=== PATIENT | female | born 1940 | race Caucasian/White ===

== ENCOUNTER 2017-05-31 18:43 | Emergency (ER) | payer OTHER ==
[2017-05-31 18:47] VITALS: BMI 24.0
--- NOTE | 2017-05-31 19:19 | DR.GENAD ---
HPI - HPI Comment HPI Comment: SIMILAR PAIN PREVIOUSLY BUT EPISODE TODAY MOST SEVERE. NO FEVER OR DYSURIA. TAKES MED FOR REFLUX. HAD BM TODAY. - Complaint/Symptoms Chief Complaint Doctors Comments: EPISODE OF SEVERE ABDOMINAL PAIN WITH NAUSEA AND VOMINTING AT HOME LASTING 20MINS. Chief Complaint:: "stomach hurting for 20min with N/V - Nurses notes reviewed Nurses Notes Review: Yes - Source History Provided: Patient - Mode of Arrival Mode of Arrival: Wheelchair - Timing Onset of Chief Complaint: 05/31/17 Came on: Suddenly - Duration Duration: Since Onset Duration: Hours - Severity Severity: Moderate PMH - PMH Past Medical History: Yes Past Medical History: Coronary Artery Disease Past Surgical History: Yes Surgical History: Angioplasty/Stents, Other - Family History History of Family Medical Conditions: No - Social History Does patient currently use any type of tobacco product: No Have you used tobacco products in the last 12 months: No Type of Tobacco Use: None Does any household member use tobacco: No Alcohol Use: None Do you use any recreational Drugs:: No Lives With: Family Lives Where: Home - infectious screening In the last 2 months have you had wt loss of >10#?: NO Have you had fever, night sweats or hemotysis?: No Have you traveled outside the country in the last 6 months?: No Isolation: Standard ROS - Review of Systems Constitutional: No Symptoms Reported Eyes: No Symptoms Reported ENTM: No Symptoms Reported Respiratoy: No Symptoms Reported Cardiovascular: No Symptoms Reported Gastrointestinal/Abdominal: Abdominal Pain, Nausea, Vomiting. negative: Diarrhea Genitourinary: No Symptoms Reported. negative: Dysuria, Frequency, Hematuria Neurological: No Symptoms Reported Musculoskeletal: No Symptoms Reported Integumentary: No Symptoms Reported Hematologic/Lymphatic: No Symptoms Reported Endocrine: No Symptoms Reported All Other Systems: Reviewed and Negative PE - Vital Signs Vitals: Temperature 97.8 F Pulse Rate [Left] 77 Pulse Rate 78 Respiratory Rate 18 Blood Pressure [Right Arm] 148/83 Blood Pressure 152/90 O2 Sat by Pulse Oximetry 100 - General Limitations: No Limitations General Appearance: Alert - Head Head Exam: Normal Inspection - Eyes Eye exam: Normal Appearance, PERRL, EOMI. negative: Scleral Icterus, Conjunctival Injection - ENT ENT Exam: Normal External Ear Exam External Ear Exam: Normal External Inspection TM/Canal Exam: Bilateral Normal Nose Exam: Normal Nose Exam Mouth Exam: Normal Inspection Throat Exam: Normal Inspection - Neck Neck Exam: Normal Inspection - Chest Chest Inspection: Symmetric Chest Wall Rise - Respiratory Respiratory Exam: Normal Lung Sounds Bilat Respiratory Exam: Bilateral Clear to Auscultation - Cardiovascular Cardiovascular Exam: Regular Rate, Normal Rhythm, Normal Heart Sounds - Abdominal Exam Abdominal Exam: Normal Bowel Sounds, Soft. negative: Tenderness - Extremities Extremities Exam: Normal Inspection - Back Back Exam: Normal Inspection - Neurologic Neurological Exam: Alert, Oriented X3 - Psychiatric Psychiatric Exam: Normal Affect, Normal Mood - Skin Skin Exam: Normal Color [facility] - Additional Information Additional Information Obtained From: Family - Differential Diagnosis Differential Diagnosis: ABDOMINAL PAIN, N/V Course - Treatment Treatment: SEE ORDERS. - Education/Counseling Education/Counseling: Patient, Family, Education Educated On: Diagnosis, Needs for Follow Up ROR - Labs Reviewed Laboratory Results Reviewed?: Yes Result Diagrams: 05/31/17 19:50 05/31/17 19:50 Laboratory: WBC 7.7 X10^3/uL (3.6-10.0) 05/31/17 19:50 RBC 3.80 X10^6/uL (3.5-5.4) 05/31/17 19:50 Hgb 12.0 g/dL (12.0-16.0) 05/31/17 19:50 Hct 35.1 % (36.0-47.0) L 05/31/17 19:50 MCV 92.4 fL (80.0-100.0) 05/31/17 19:50 MCH 31.7 pg (27.0-34.0) 05/31/17 19:50 MCHC 34.3 g/dL (33.0-35.0) 05/31/17 19:50 RDW 13.6 % (11.6-16.5) 05/31/17 19:50 Plt Count 199 X10^3/uL (150.0-450.0) 05/31/17 19:50 MPV 8.5 fL (7.4-11.0) 05/31/17 19:50 Neut % 58.4 % (42.0-75.0) 05/31/17 19:50 Lymph % 27.9 % (21.0-51.0) 05/31/17 19:50 [place] % 6.6 % (0.0-13.0) 05/31/17 19:50 Eos % 6.3 % (0.9-2.9) H 05/31/17 19:50 Baso % 0.8 % (0.2-1.0) 05/31/17 19:50 Neut # 4.5 x10^3/uL (2.2-4.8) 05/31/17 19:50 Lymph # 2.2 X10^3/uL (1.3-2.9) 05/31/17 19:50 [place] # 0.5 x10^3/uL (0.3-0.8) 05/31/17 19:50 Eos # 0.5 x10^3/uL (0.0-0.2) H 05/31/17 19:50 Baso # 0.1 X10^3/uL (0.0-0.1) 05/31/17 19:50 Absolute Nucleated RBC 0.0 /100WBC 05/31/17 19:50 Sodium 145 mmol/L (136-145) 05/31/17 19:50 Corrected Sodium TNP 05/31/17 19:50 Potassium 3.2 mmol/L (3.5-5.1) L 05/31/17 19:50 Chloride 109 mmol/L (98-107) H 05/31/17 19:50 Carbon Dioxide 23.9 mmol/L (21-32) 05/31/17 19:50 BUN 20 mg/dL (7-18) H 05/31/17 19:50 Creatinine 1.55 mg/dL (0.55-1.02) H 05/31/17 19:50 Est GFR (MDRD) Af Amer 42 (>60) L 05/31/17 19:50 Est GFR (MDRD) Non-Af 35 (>60) L 05/31/17 19:50 Glucose 101 mg/dL (65-99) H 05/31/17 19:50 Calcium 9.5 mg/dL (8.5-10.1) 05/31/17 19:50 Corrected Calcium TNP 05/31/17 19:50 Total Bilirubin 0.30 mg/dL (0.2-1.0) 05/31/17 19:50 AST 22 Units/L (15-37) 05/31/17 19:50 ALT 18 Units/L (12-78) 05/31/17 19:50 Alkaline Phosphatase 62 Units/L (46-116) 05/31/17 19:50 Total Protein 7.6 g/dL (6.4-8.2) 05/31/17 19:50 Albumin 3.9 g/dL (3.4-5.0) 05/31/17 19:50 Globulin 3.7 g/dL (2.5-4.5) 05/31/17 19:50 Albumin/Globulin Ratio 1.1 Ratio (1.1-2.1) 05/31/17 19:50 Amylase 87 Units/L (25-115) 05/31/17 19:50 Lipase 470 Units/L (73-393) H 05/31/17 19:50 Specimen Type Clean catch urine 05/31/17 19:33 Urine Color Yellow (YELLOW) 05/31/17 19:33 Urine Appearance Slightly hazy (CLEAR) 05/31/17 19:33 Urine pH 5.0 (5.0 - 8.0) 05/31/17 19:33 Ur Specific [place] 1.025 (1.000-1.030) 05/31/17 19:33 Urine Protein 2+ (NEGATIVE) 05/31/17 19:33 Urine Glucose (UA) Negative (NEGATIVE) 05/31/17 19:33 Urine Ketones Negative (NEGATIVE) 05/31/17 19:33 Urine Occult Blood 2+ (NEGATIVE) 05/31/17 19:33 Urine Nitrite Negative (NEGATIVE) 05/31/17 19:33 Urine Bilirubin Negative (NEGATIVE) 05/31/17 19:33 Urine Urobilinogen Normal (NORMAL) 05/31/17 19:33 Ur Leukocyte Esterase 1+ (NEGATIVE) 05/31/17 19:33 Urine RBC 3-5 /HPF (NEGATIVE) 05/31/17 19:33 Urine WBC 2-3 /HPF (NEGATIVE) 05/31/17 19:33 Ur Squamous Epith Cells Few /HPF (NEGATIVE) 05/31/17 19:33 Calcium Oxalate Crystal Few /HPF (NEGATIVE) 05/31/17 19:33 Urine Bacteria 1+ /HPF (NEGATIVE) 05/31/17 19:33 Ur Culture Indicated? No/not indicated 05/31/17 19:33 - XRAY XRAY Interpreted by: Radiologist XRAY Findings: REPORT DISCUSS WITH PATIENT AND FAMILY. - Diagnosis Discharge Problem: Abdominal pain, Hypokalemia, Elevated lipase - Discharge Plan Disposition: 01 HOME, SELF-CARE Condition: Stable Prescriptions: Ondansetron HCl [Zofran Tab 4 mg] 4 mg PO Q8H PRN #12 tab PRN Reason: Nausea/Vomiting - Follow ups/Referrals Follow ups/Referrals: [facility],None [Primary Care Provider] - 06/01/17 - Instructions Instructions: Hypokalemia, Abdominal Pain, Adult, Ucna-pv-Aooh Additional Instructions: RETURN TO ED IF WORSE.
[2017-05-31 19:49] LABS: BILIRUBIN,URINE NEGATIVE (NEGATIVE); BLOOD/HEMOGLOBIN,URINE 2+ (NEGATIVE); GLUCOSE, URINE NEGATIVE (NEGATIVE); KETONES,URINE NEGATIVE (NEGATIVE); LEUKOCYTE ESTERASE ,URINE 1+ (NEGATIVE); NITRITES,URINE NEGATIVE (NEGATIVE); PROTEIN,URINE 2+ (NEGATIVE); UROBILINOGEN,URINE NORMAL (NORMAL)
[2017-05-31 20:05] LABS: BASOPHILS # (AUTO) 0.1 X10^3/uL (0.0-0.1); BASOPHILS % (AUTO) 0.8 % (0.2-1.0); EOSINOPHILS # (AUTO) 0.5 x10^3/uL (0.0-0.2); EOSINOPHILS % (AUTO) 6.3 % (0.9-2.9); HEMATOCRIT 35.1 % (36.0-47.0); LYMPHOCYTES # (AUTO) 2.2 X10^3/uL (1.3-2.9); LYMPHOCYTES % (AUTO) 27.9 % (21.0-51.0); MEAN CORPUSCULAR HEMOGLOBIN 31.7 pg (27.0-34.0); MEAN CORPUSCULAR HGB CONC 34.3 g/dL (33.0-35.0); MEAN CORPUSCULAR VOLUME 92.4 fL (80.0-100.0); MEAN PLATELET VOLUME 8.5 fL (7.4-11.0); MONOCYTES # (AUTO) 0.5 x10^3/uL (0.3-0.8); MONOCYTES % (AUTO) 6.6 % (0.0-13.0); NEUTROPHILS # (AUTO) 4.5 x10^3/uL (2.2-4.8); NEUTROPHILS % (AUTO) 58.4 % (42.0-75.0); PLATELET COUNT 199 X10^3/uL (150.0-450.0); RED CELL DISTRIBUTION WIDTH 13.6 % (11.6-16.5); WHITE BLOOD COUNT 7.7 X10^3/uL (3.6-10.0)
[2017-05-31 20:10] LABS: APPEARANCE,URINE SLIGHTLY HAZY (CLEAR); BACTERIA,URINE 1+ /HPF (NEGATIVE); CALCIUM OXALATE CRYSTALS,UR FEW /HPF (NEGATIVE); COLOR,URINE YELLOW (YELLOW); SQUAMOUS EPITHELIAL CELL,UR FEW /HPF (NEGATIVE)
[2017-05-31 20:15] LABS: ALANINE AMINOTRANSFERASE 18 Units/L (12-78); ALBUMIN 3.9 g/dL (3.4-5.0); ALKALINE PHOSPHATASE 62 Units/L (46-116); AMYLASE 87 Units/L (25-115); ASPARTATE AMINO TRANSFERASE 22 Units/L (15-37); BLOOD UREA NITROGEN 20 mg/dL (7-18); CALCIUM 9.5 mg/dL (8.5-10.1); CARBON DIOXIDE 23.9 mmol/L (21-32); CHLORIDE 109 mmol/L (98-107); CREATININE 1.55 mg/dL (0.55-1.02); LIPASE 470 Units/L (73-393); SODIUM 145 mmol/L (136-145); TOTAL PROTEIN 7.6 g/dL (6.4-8.2); eGFR BLACK RACES 42 (>60); eGFR NON BLACK RACES 35 (>60)
[2017-05-31] MEDS ORDERED: POTASSIUM CHLORIDE LIQ 20 MEQ UDC PO ONE (21:10)
[2017-05-31] MEDS ORDERED: POTASSIUM CHLORIDE LIQ 20 MEQ UDC ONE (21:15)
[2017-05-31 21:24] VITALS: BP 148/83
--- NOTE | 2017-06-01 01:19 | RAD ---
Abdomen-single view Indication: Abdominal pain with nausea and vomiting. Findings: There is no free air or pneumatosis. No dilated loop of small bowel seen. Moderate stool se en in the colon. Right abdominal pelvic clips noted. Impression: No high-grade obstruction or free air pneumatosis. Constipation may present. Left lower p ole renal stone possible. Reported By:
== END 2017-05-31 21:20 | disposition home or self-care (01) ==
LOC: ER 18:54
DX: R10.84 Generalized abdominal pain (principal); E87.6 Hypokalemia; R74.8 Abnormal levels of other serum enzymes
CPT/HCPCS: 36415; 74000; 80053; 81001; 82150; 83690; 85025; 99283

== ENCOUNTER → 2017-06-09 | Outpatient (CLI) | payer OTHER ==
[2017-05-31 21:24] VITALS: BP 148/83
[2017-06-09 08:46] LABS: CREATININE 1.5 mg/dL (0.55-1.02)
--- NOTE | 2017-06-10 09:26 | CT ---
HISTORY: Generalized weight loss and abdominal pain. Study: CT chest without contrast Comparison: None available. Technique: Multiple axial images of the chest were obtained from the thoracic inlet to the upper abdo men without the administration of IV contrast. Dose reduction techniques including Automated Exposure Control (AEC) and adjustment of mA and kV were utilized. Findings: Limited study secondary to lack of IV contrast. The mediastinum does not demonstrate significant pathological lymphadenopathy. There is no paracardi al effusion observed. The thoracic aorta is normal in its contour without evidence for aneurysmal di latation. Multiple calcified mediastinal and hilar lymph nodes consistent with old granulomatous dise ase. Moderate to severe vascular calcifications of the coronary arteries. There appears to be a cardi ac stent within the left anterior descending coronary artery. Mild biapical scarring. 2.7 cm left lower lobe calcified pulmonary nodule. 2 mm subpleural right uppe r lobe pulmonary nodule (series 3, image 23). No other pulmonary nodules, masses, pleural effusion, f ocal consolidation, or pneumothorax. Multiple punctate calcifications within the spleen consistent wi th old granulomatous disease. Small hiatal hernia. Multiple nonobstructing left renal nephroliths, th e largest measuring 4 mm within the left inferior renal pole. Remaining upper abdominal structures ap pear normal. Multiple degenerative changes of the lumbar spine. Anterior compression fracture of the L2 vertebral body of unknown chronicity. Remaining osseous structures appear intact. IMPRESSION: 1. No acute thoracic pathology. 2. 2 mm subpleural right lower lobe pulmonary nodule. 3. L2 compression fracture of unknown chronicity. Recommend clinical correlation for point tenderness and consider MRI for further characterization. Reported By:
--- NOTE | 2017-06-10 09:48 | CT ---
HISTORY: Pain Study: CT abdomen and pelvis without contrast Comparison: None Technique: Multiple axial images of the abdomen and pelvis were obtained from the lung bases to the pubic symphy sis after oral contrast only. Automated does control was utilized. Findings: There are calcified granulomas along the left lower lobe measuring up to 2.4 cm . The liver and splee n are normal size with tiny calcified granulomas throughout the spleen. The gallbladder, pancreas , a nd bile ducts are normal. The adrenals are normal. The kidneys are normal size with a 2 mm stone mary g the upper pole left kidney and a larger 4 mm stone along the lower pole. No hydronephrosis or renal masses are seen. The ureters are normal caliber with no adenopathy or ascites. There are surgical cl ips along the right lower quadrant. The appendix is not visualized. The uterus has been removed and t he bladder is unremarkable. There is no adnexal mass or free fluid and there is no bowel obstruction. There are diverticula scattered along the sigmoid colon with no pericolonic inflammation. The mesent mateo is unremarkable. Degenerative changes are seen in the spine with a mild compression fracture of L 3 . There is no displaced or retropulsed fragment. No adenopathy or ascites is seen. IMPRESSION: Small renal stones scattered in the left kidney with no hydronephrosis or urinary obstruction seen. Calcified granulomas in the spleen with no acute intra-abdominal abnormality seen. Status post hysterectomy and postop changes in the right lower quadrant with no pelvic mass or inflam mation. Mild diverticulosis of the sigmoid colon with no pericolonic inflammation Mild compression fracture of L3 which appears chronic. Recommend clinical follow-up. Calcified granulomas left lower lobe. Reported By:
== END | disposition home or self-care (01) ==
LOC: RAD 08:15
PROVIDERS: ATTEND Internal Medicine
DX: R63.4 Abnormal weight loss (principal); M48.56XA Collapsed vertebra, not elsewhere classified, lumbar region, initial encounter for fracture; R10.84 Generalized abdominal pain; K57.30 Diverticulosis of large intestine without perforation or abscess without bleeding; N20.0 Calculus of kidney; R91.1 Solitary pulmonary nodule
CPT/HCPCS: 36415; 71250; 74176; 82565; 84520

== ENCOUNTER 2020-01-02 12:13 | Observation (INO) ==
[2020-01-02] MEDS ORDERED: HALDOL INJ ONE (14:06)
[2020-01-02] MEDS ORDERED: HALDOL INJ IM ONE (14:10)
[2020-01-02] MEDS ORDERED: HALDOL INJ IVP PRN (14:24)
[2020-01-02 15:15] LABS: BASOPHILS % (AUTO) 0.5 % (0.2-1.0); EOSINOPHILS # (AUTO) 0.3 x10^3/uL (0.0-0.2); EOSINOPHILS % (AUTO) 5.1 % (0.9-2.9); HEMATOCRIT 26.7 % (36.0-47.0); HEMOGLOBIN 8.5 g/dL (12.0-16.0); LYMPHOCYTES # (AUTO) 1.4 X10^3/uL (1.3-2.9); LYMPHOCYTES % (AUTO) 27.8 % (21.0-51.0); MEAN CORPUSCULAR HEMOGLOBIN 26.5 pg (27.0-34.0); MEAN CORPUSCULAR HGB CONC 32.1 g/dL (33.0-35.0); MEAN CORPUSCULAR VOLUME 82.5 fL (80.0-100.0); MEAN PLATELET VOLUME 6.9 fL (7.4-11.0); MONOCYTES # (AUTO) 0.5 x10^3/uL (0.3-0.8); MONOCYTES % (AUTO) 9.7 % (0.0-13.0); NEUTROPHILS % (AUTO) 56.9 % (42.0-75.0); PLATELET COUNT 255 X10^3/uL (150.0-450.0); RED BLOOD COUNT 3.23 X10^6/uL (3.5-5.4); RED CELL DISTRIBUTION WIDTH 15.8 % (11.6-16.5); WHITE BLOOD COUNT 5.2 X10^3/uL (3.6-10.0)
[2020-01-02 15:34] LABS: ALANINE AMINOTRANSFERASE 14 Units/L (12-78); ALBUMIN 3.3 g/dL (3.4-5.0); ALKALINE PHOSPHATASE 63 Units/L (46-116); ASPARTATE AMINO TRANSFERASE 19 Units/L (15-37); BLOOD UREA NITROGEN 21 mg/dL (7-18); CALCIUM 8.8 mg/dL (8.5-10.1); CARBON DIOXIDE 27.1 mmol/L (21-32); CHLORIDE 104 mmol/L (98-107); CKMB % 1.3 % (<4); COR CA(FOR HYPOALB) 9.4 mg/dL (8.5-10.1); CREATINE KINASE 163 Units/L (26-192); CREATINE KINASE MB 2.1 ng/mL (0-4.0); CREATININE 1.47 mg/dL (0.55-1.02); SODIUM 139 mmol/L (136-145); TROPONIN I < 0.02 ng/mL (0-1.5); eGFR NON BLACK RACES 37 (>60)
--- NOTE | 2020-01-02 15:38 | RAD ---
HISTORYAMS, ALZHEIMERS, AGITATIONSTUDYCHEST, [address] June 09, 2017.FINDINGSThe trachea is midline. The cardiac silhouette is unremarkable . The lungs are clear without focal infiltrate or effusion. A large calcified granuloma seen in the left lung base and calcified lymph nodes are seen at the left hilum. The bony thorax is unremarkable.IMPRESSIONOld granulomas disease but no acute cardiopulmonary abnormalities.Electronically signed by: MARJORIE MANCINI (January 02, 2020 15:36:28)
[2020-01-02 18:00] LABS: BILIRUBIN,URINE NEGATIVE (NEGATIVE); BLOOD/HEMOGLOBIN,URINE NEGATIVE (NEGATIVE); GLUCOSE, URINE NEGATIVE (NEGATIVE); KETONES,URINE NEGATIVE (NEGATIVE); LEUKOCYTE ESTERASE ,URINE 1+ (NEGATIVE); NITRITES,URINE NEGATIVE (NEGATIVE); PROTEIN,URINE NEGATIVE (NEGATIVE); UROBILINOGEN,URINE NORMAL (NORMAL)
[2020-01-02 18:02] LABS: APPEARANCE,URINE CLEAR (CLEAR); COLOR,URINE YELLOW (YELLOW)
[2020-01-02 18:33] LABS: BACTERIA,URINE NEGATIVE /HPF (NEGATIVE); RBC,URINE 0-2 /HPF (0-3); SQUAMOUS EPITHELIAL CELL,UR RARE /HPF (NEGATIVE)
[2020-01-02 18:34] LABS: AMORPHOUS SEDIMENT,UR TRACE /HPF (NEGATIVE)
[2020-01-02 19:05] LABS: ABG ALLEN TEST POS; ABG BASE EXCESS 1.6 mmol/L (-2.0-2.0); ABG HCO3 24.2 mmol/L (22-26)
[2020-01-02] MEDS: NS 1000 ML 1,000 ML IV SCH (21:10)
[2020-01-03 06:03] LABS: BASOPHILS % (AUTO) 0.7 % (0.2-1.0); EOSINOPHILS # (AUTO) 0.2 x10^3/uL (0.0-0.2); EOSINOPHILS % (AUTO) 4.8 % (0.9-2.9); HEMATOCRIT 25.6 % (36.0-47.0); HEMOGLOBIN 8.2 g/dL (12.0-16.0); LYMPHOCYTES # (AUTO) 1.2 X10^3/uL (1.3-2.9); LYMPHOCYTES % (AUTO) 25.9 % (21.0-51.0); MEAN CORPUSCULAR HEMOGLOBIN 26.4 pg (27.0-34.0); MEAN CORPUSCULAR HGB CONC 31.9 g/dL (33.0-35.0); MEAN CORPUSCULAR VOLUME 82.8 fL (80.0-100.0); MEAN PLATELET VOLUME 7.5 fL (7.4-11.0); MONOCYTES # (AUTO) 0.4 x10^3/uL (0.3-0.8); MONOCYTES % (AUTO) 9.8 % (0.0-13.0); NEUTROPHILS # (AUTO) 2.7 x10^3/uL (2.2-4.8); NEUTROPHILS % (AUTO) 58.8 % (42.0-75.0); PLATELET COUNT 239 X10^3/uL (150.0-450.0); RED CELL DISTRIBUTION WIDTH 15.5 % (11.6-16.5); WHITE BLOOD COUNT 4.6 X10^3/uL (3.6-10.0)
[2020-01-03 06:09] LABS: ALANINE AMINOTRANSFERASE 14 Units/L (12-78); ALBUMIN 2.7 g/dL (3.4-5.0); ALKALINE PHOSPHATASE 51 Units/L (46-116); ASPARTATE AMINO TRANSFERASE 18 Units/L (15-37); BLOOD UREA NITROGEN 17 mg/dL (7-18); CALCIUM 8.2 mg/dL (8.5-10.1); CARBON DIOXIDE 25.4 mmol/L (21-32); CHLORIDE 107 mmol/L (98-107); COR CA(FOR HYPOALB) 9.2 mg/dL (8.5-10.1); SODIUM 140 mmol/L (136-145); TOTAL PROTEIN 5.8 g/dL (6.4-8.2); eGFR NON BLACK RACES 42 (>60)
[2020-01-03] MEDS ORDERED: KLONOPIN TAB 0.5 MG PO SCH (09:00)
[2020-01-03] MEDS ORDERED: MAXZIDE 37.5/25 MG PO SCH (09:00)
--- NOTE | 2020-01-03 10:03 | DR.H&P ---
H&P - History & Physical for Day of: H&P Date: 01/02/20 - Chief Complaint Chief Complaint: AMS, HALLUCINATIONS, COMBATIVE - History of Present Illness History of Present Illness: IS A 79 YEAR OLD PATIENT OF OURS WHO PRESENTED TO THE HOSPITAL A DIRECT ADMISSION DUE TO AGITATED PSYCHOSIS. PATIENT HAS A HISTORY OF ALZHEIMERS. PATIENTS FAMILY REPORTS THAT HER MENTAL STATUS HAS SIGNIFICANTLY WORSENED OVER THE PAST TWO DAYS. THEY REPORT THAT ON THE NIGHT PRIOR TO ADMISSION, PATIENT PULLED ALL OF HER CLOTHES OFF IN THE KITCHEN, URINATED ON THE FLOOR, AND THEN WALKED AROUND THE KITCHEN TABLE FOR HOURS. THEY REPORT THAT WHEN SHE WAS SPOKEN TO, SHE DID NOT AKNOWLEDGE THEM. THEY ALSO REPORT THAT SHE HAS BEEN ANXIOUS AND AGITATED PRIOR TO THAT. PATIENT HAS BEEN HALLUCINATING AND HAS HAD AN UNSTEADY, SHUFFLING GAIT. SHE IS REPORTE DLY COMBATIVE AT TIMES. PATIENT WAS STARTED ON ZYPREXA APPROXIMATELY TWO MONTHS AGO, HOWEVER, WE DISCONTINUED DUE TO OVERSEDATION. WE STARTED SEROQUEL. PATIENT IS CURRENTLY ON SEROQUEL XR 100MG PO BID, HOWEVER, PSYCHOSIS IS NOT CONTROLLED. PMH INCLUDES HTN, TIA, ALZHEIMERS, GLAUCOMA, CAD, GERD, ANXIETY, APPENDECTOMY, HYSTERECTOMY, AND CARDIAC STENTS. ON ARRIVAL TO THE HOSPITAL, VITALS WERE 97.9-81-18-100%-164/73. LABS WERE OBTAINED. ABNORMAL LAB VALUES INCLUDE THE FOLLOWING: RBC 3.23, HGB 8.5, HCT 26.7, BUN 21, CREATININE 1.47, ALBUMIN 3.3. URINALYSIS REVEALED WBC 0-2, RBC 0-2, BACTERIA NEGATIVE, LEUKOCYTES 1+. CHEST XRAY REVEALS OLD GRANULOMAS DISEASE, BUT NO ACUTE CARDIOPULMONARY ABNORMALITIES. EKG REVEALED: SINUS RHYTHM WITH HR 86. SHE WAS STARTED ON NS AT 50ML/HR, HALDOL 2MG IV Q4H PRN AGITATION, AND HOME MEDICATIONS OF SEROQUEL, KLONOPIN, AND TRIAMTERENE/HCTZ WERE RESUMED. WE WILL CONSULT WITH BEHAVIORAL HEALTH TODAY. PATIENT IS MEDICALLY STABLE AND CLEAR FOR TRANSFER, SHOULD THEY ACCEPT HER. OTHERWISE, WE WILL CONTINUE TO MONITOR AND MAKE ADJUSTMENTS ACCORDINGLY. - Past Medical History Past Medical History: Alzheimers, Anxiety, Coronary Artery Disease, GERD, Hypertension Additional Medical History: TIA, GLAUCOMA - Past Surgical History Surgical History: Angioplasty/Stents, Appendectomy, Hysterectomy - Family History Family Medical History: MA - Social History Does any household member use tobacco: No Alcohol Use: None Drug Use: None - Medications Home Medications: No Known Drug Allergies Allergy (Verified 10/20/19 00:03) CONTINUE taking the following medications quetiapine [Seroquel XR] 100 mg PO BID 01/03/20 [History] triamterene-hydrochlorothiazid 37.5 cap PO DAILY 01/03/20 [History] - Review of Systems Constitutional: See HPI Eyes: No Symptoms Reported ENT: No Symptoms Reported Respiratory: No Symptoms Reported Cardiovascular: No Symptoms Reported Gastrointestinal: No Symptoms Reported Genitourinary: No Symptoms Reported Musculoskeletal: No Symptoms Reported Skin: No Symptoms Reported Neurological: See HPI, Incoordination, Confusion - Physical Exam Vital Signs: Temperature 98.7 F Pulse Rate [Right Brachial] 83 Respiratory Rate 20 Blood Pressure [Right Arm] 142/70 Blood Pressure 106/54 O2 Sat by Pulse Oximetry 98 Oriented: Not Oriented Eyes: Normal Ear: Normal Nose: Normal Throat: Normal Respiratory: Diminished Throughout Cardiovascular: Normal. negative: S3, S4, Murmur : Normal Auscultation: Bowel Sounds: Normal Palpation: Normal Tenderness: Normal Skin: Normal Musculoskeletal: Instability Psychiatric: Agitation Mood Description: Hostile, Anxious Affect: Angry, Anxious Speech Pattern: Inappropriate - Assessment/Plan (1) Psychosis Qualifiers: Psychosis type: unspecified psychosis type Qualified Code(s): F29 - Unspecified psychosis not due to a substance or known physiological condition Status: Acute Plan: ADMIT, NS AT 50ML/HR, HALDOL 2MG IV Q4H PRN AGITATION, AND HOME MEDICATIONS OF SEROQUEL, KLONOPIN, AND TRIAMTERENE/HCTZ WERE RESUMED, CONTACT [facility] FOR TRANSFER (2) Agitation Status: Acute (3) Alzheimer's dementia Qualifiers: Alzheimer's disease onset: late-onset Dementia behavioral disturbance: with behavioral disturbance Qualified Code(s): G30.1 - Alzheimer's disease with late onset; F02.81 - Dementia in other diseases classified elsewhere with behavioral disturbance Status: Chronic - Allergies Allergies/Adverse Reactions: Allergies Allergy/AdvReac Type Severity Reaction Status Date / Time No Known Drug Allergies Allergy Verified 10/20/19 00:03
[2020-01-03] MEDS: NS 1000 ML 1,000 ML IV SCH (10:10)
[2020-01-03] MEDS: PATIENT'S HOME MEDICATION PO SCH ×3 (10:10→20:30)
[2020-01-03] MEDS: QUETIAPINE 100 MG PO SCH ×2 (10:10→20:30)
[2020-01-04] MEDS: NS 1000 ML 1,000 ML IV SCH
[2020-01-04] MEDS: PATIENT'S HOME MEDICATION PO SCH ×2 (09:48)
[2020-01-04] MEDS: QUETIAPINE 100 MG PO SCH (09:48)
[2020-01-04 09:49] VITALS: BP 174/74
== END 2020-01-04 12:35 | disposition home or self-care (01) ==
LOC: MED/SURG
PROVIDERS: ADMIT Internal Medicine; ATTEND Internal Medicine
DX: R41.82 Altered mental status, unspecified; Z79.899 Other long term (current) drug therapy; F02.81 Dementia in other diseases classified elsewhere, unspecified severity, with behavioral disturbance; K21.9 Gastro-esophageal reflux disease without esophagitis; G30.1 Alzheimer's disease with late onset; R94.4 Abnormal results of kidney function studies; I10 Essential (primary) hypertension; I25.10 Atherosclerotic heart disease of native coronary artery without angina pectoris; R26.89 Other abnormalities of gait and mobility; F29 Unspecified psychosis not due to a substance or known physiological condition
CPT/HCPCS: 36415; 36600; 71010; 71045; 80053; 81001; 82550; 82553; 82803; 84484; 85025; 85610; 85730; 87086; 93005; 96360; 96361; 96372; 97110; 97163; 97167; 97535; A4216; A4222; G0378; J1630; J7030